=== PATIENT | male | born 1985 | race Caucasian/White ===

== ENCOUNTER 2024-02-20 10:55 | Outpatient (OUT) | payer OTHER, SELFPAY ==
[2024-02-20 11:44] LABS: Basophils Absolute Auto 0.1 10^3/uL (0.0-0.1); Basophils Percent Auto 0.7 % (0.2-2.0); Eosinophils Absolute Auto 0.3 10^3/uL (0.0-0.7); Eosinophils Percent Auto 4.2 % (0.9-7.0); Hematocrit 42.4 % (42.0-54.0); Hemoglobin 13.7 g/dL (14.0-18.0); Immature Granulocytes Abs Auto 0.02 10^3/uL (0.00-0.03); Immature Granulocytes Pct Auto 0.3 % (0.0-0.5); Lymphocytes Absolute Auto 2.8 10^3/uL (1.2-3.8); Lymphocytes Percent Auto 37.1 % (20.5-60.0); Mean Corpuscular HGB Conc 32.3 g/dL (29.9-35.2); Mean Corpuscular Hemoglobin 30.4 pg (25.9-34.0); Monocytes Absolute Auto 0.8 10^3/uL (0.3-0.8); Monocytes Percent Auto 10.1 % (1.7-12.0); Neutrophils Absolute Auto 3.5 10^3/uL (1.4-6.5); Neutrophils Percent Auto 47.6 % (43.0-75.0); Platelet Count 211 10^3/uL (150-450); Red Blood Count 4.51 10^6/uL (4.70-6.10); Red Cell Distribution Width 12.6 % (11.0-15.0); White Blood Count 7.4 10^3/uL (4.0-11.0)
[2024-02-20 11:57] LABS: INR 0.99; Partial Thromboplastin Time 24.5 sec (22.3-36.2); Prothrombin Time 10.5 sec (9.0-11.6)
== END 2024-02-20 10:56 | disposition home or self-care (01) ==
LOC: PST 10:56
PROVIDERS: PCP Family Medicine; Visit Provider Otolaryngology
DX: Z01.812 Encounter for preprocedural laboratory examination (principal); R04.0 Epistaxis
CPT/HCPCS: 85025; 85610; 85730

== ENCOUNTER 2024-02-26 09:57 | Day surgery (SDC) | payer OTHER, SELFPAY ==
[2024-02-20 11:22] VITALS: BP 128/77; PULSE 73; TEMP 36.4; O2SAT 97; BMI 27.3
[2024-02-26] VITALS (10 sets, daily range): BP systolic 110–131; BP diastolic 66–78; PULSE 68–88; TEMP 36.2–36.4; O2SAT 94–99; BMI 27.3
--- NOTE | 2024-02-26 | OP_ITS ---
OPERATION DATE: 02/26/2024 PRIMARY CARE PHYSICIAN: Shahbaz Muir M.D. SURGEON: Therese Dawn M.D. PREOPERATIVE DIAGNOSIS: Recurrent left epistaxis. POSTOPERATIVE DIAGNOSIS: Recurrent left epistaxis. PROCEDURE: Left nasal endoscopy and cautery. ANESTHESIA: General endotracheal. COMPLICATIONS: None. FINDINGS: Hemangioma of the left mid septal. INDICATIONS: This 38-year-old man presented for evaluation of recurrent left sided epistaxis and was found in the office to have an hemangioma in the mid portion of the left septum. PROCEDURE: Patient identified in the holding area and taken back to the OR where he was placed in a supine position. After induction of general endotracheal anesthesia, Afrin soaked pledgets were placed in the left side of the nose and after waiting adequate time for decongestion, the nose was approached with the nasal endoscope. The hemangioma was identified and cauterized with suction Bovie. There was scant bleeding. Antibiotic ointment was placed over the cautery site, and the patient was awakened and taken to the recovery room in good condition. MTDAnastasia
[2024-02-26] MEDS: LACTATED RINGER'S SOLUTION 1,000 ML 50 ML IV (10:29)
[2024-02-26] MEDS: BACITRACIN OINTMENT 28.4 GM TUBE 1 APPLIC TOPICAL (13:00)
[2024-02-26] MEDS: OXYMETAZOLINE HCL 0.05% NASAL SPRAY 30 SPRAY NS (13:01)
== END 2024-02-26 14:08 | disposition home or self-care (01) ==
PROVIDERS: PCP Family Medicine; Visit Provider Otolaryngology
PROC: (CPT 160; principal; 2024-02-26 10:55)
DX: R04.0 Epistaxis (principal); D18.09 Hemangioma of other sites; F41.9 Anxiety disorder, unspecified; Z86.718 Personal history of other venous thrombosis and embolism; J30.9 Allergic rhinitis, unspecified; J32.4 Chronic pansinusitis; J34.2 Deviated nasal septum; J33.9 Nasal polyp, unspecified
CPT/HCPCS: 31238; 36415; J1094; J2704